=== PATIENT | female | born 1995 ===

== ENCOUNTER 2017-01-26 17:15 | Emergency (ER) | payer BC ==
[2017-01-26 17:32] VITALS: BP 106/71
--- NOTE | 2017-01-26 17:36 | UC ---
Abdominal Pain Male HPI - History of Current Complaint Stated Complaint: SORE THROAT Time Seen by Provider: 01/26/17 17:29 Hx Obtained From: Patient - Allergies/Home Medications Allergies/Adverse Reactions: Allergies Allergy/AdvReac Type Severity Reaction Status Date / Time Penicillins Allergy Rash Verified 01/26/17 17:24 Sulfa Antibiotics Allergy See Comment Verified 01/26/17 17:24 Home Medications: Home Medications Ibuprofen TAB* [Advil TAB*] 200 mg PO Q6H PRN 01/26/17 [History Confirmed ] Pseudoephedrine TAB* [Sudafed TAB*] 30 mg PO Q6H PRN 01/26/17 [History Confirmed 01/26/17] PMH/Surg Hx/FS Hx/Imm Hx Previously Healthy: No - Heroin addiction (quit "2 years ago"). Endocrine History Of: Denies: Diabetes, Thyroid Disease, Hyperthyroidism, Hypothyroidism, Dyslipidemia Cardiovascular History Of: Denies: Cardiac Disorders, Hypertension, Pacemaker/ICD, Myocardial Infarction , Congestive Heart Failure, Atrial Fibrillation, Deep Vein Thrombosis, Bleeding Disorders Respiratory History Of: Reports: Asthma - Exercise induced. Denies: COPD, Bronchitis, Pneumonia, Pulmonary Embolism GI/ History Of: Denies: Gastroesophageal Reflux, Ulcer, Gastrointestinal Bleed, Gall Bladder Disease, Kidney Stones, Diverticulitis, Renal Disease, Urosepsis
--- NOTE | 2017-01-26 18:00 | UC ---
Respiratory Complaint HPI - HPI Summary HPI Summary: This is an otherwise healthy 21 yo female who presents with complaints of one week of ST, FISH, ear pain, and dry cough. She has had associated chills and arthralgias. No SOB. No CP. She is unsure if she had a flu shot this year. She has been using Sudafed and ibuprofen at home the last couple of days, prior to that she was using DayQuil and NyQuil. - History of Current Complaint Chief Complaint: UCGeneralIllness Stated Complaint: SORE THROAT Time Seen by Provider: 01/26/17 17:29 Hx Last Menstrual Period: 01/22/17 - Allergies/Home Medications Allergies/Adverse Reactions: Allergies Allergy/AdvReac Type Severity Reaction Status Date / Time Penicillins Allergy Rash Verified 01/26/17 17:24 Sulfa Antibiotics Allergy See Comment Verified 01/26/17 17:24 Home Medications: Home Medications Pseudoephedrine TAB* [Sudafed TAB*] 30 mg PO Q6H PRN 01/26/17 [History Confirmed 01/26/17] PMH/Surg Hx/FS Hx/Imm Hx Previously Healthy: Yes - Surgical History Surgical History: None - Family History Known Family History: Positive: None - Social History Alcohol Use: None Substance Use Type: None Smoking Status (MU): Never Smoked Tobacco Review of Systems Constitutional: Chills Skin: Negative Eyes: Negative ENT: Sore Throat, Ear Ache, Nasal Discharge Respiratory: Cough Cardiovascular: Negative Gastrointestinal: Negative Genitourinary: Negative Motor: Negative Neurovascular: Negative Musculoskeletal: Negative Neurological: Negative Psychological: Negative All Other Systems Reviewed And Are Negative: Yes Physical Exam Triage Information Reviewed: Yes Appearance: Well-Appearing Vital Signs: Initial Vital Signs Temp 95.8 F 01/26/17 17:26 Pulse 71 01/26/17 17:26 Resp 16 01/26/17 17:26 BP 106/71 01/26/17 17:26 Pulse Ox 100 01/26/17 17:26 Vital Signs Reviewed: Yes ENT: Positive: Hearing grossly normal, Pharyngeal erythema - mildly injected, Nasal congestion, TM dull. Negative: TM bulging, TM red, Tonsillar swelling, Tonsillar exudate Neck: Positive: Supple, Enlarged Nodes @ - anterior cervical Respiratory: Positive: Lungs clear, Normal breath sounds, No respiratory distress. Negative: Crackles, Rhonchi, Stridor Cardiovascular: Positive: RRR, No Murmur Abdomen Description: Positive: Nontender, Soft Bowel Sounds: Positive: Present Skin Exam: Normal UC Diagnostic Evaluation - Laboratory O2 Sat by Pulse Oximetry: 100 Respiratory Course/Dx - Course Course Of Treatment: This is an otherwise healthy female who presents with a constellation of symptoms most consistent with an acute viral syndrome. Possibly influenza. She is outside the window for Tamiflu therapy and is otherwise uncomplicated, influenza testing not performed for these reasons. Recommend continued supportive care. - Differential Dx/Diagnosis Differential Diagnosis/HQI/PQRI: Bronchitis, Influenza, Laryngitis, Sinusitis Provider Diagnoses: Acute viral respiratory infection Discharge - Discharge Plan Condition: Stable Disposition: HOME Patient Education Materials: Upper Respiratory Infection (ED) Additional Instructions: Activity: As tolerated Instructions: 1. Continue Sudafed during the day, you may you benadryl at night as a decongestant that can also help with sleep 2. Increase your ibuprofen, use 600 mg up to three times daily to help with your throat pain and body aches
== END 2017-01-26 18:04 | disposition home or self-care (01) ==
LOC: UCCORT 17:15
DX: J06.9 Acute upper respiratory infection, unspecified (principal); Z88.2 Allergy status to sulfonamides; Z88.0 Allergy status to penicillin
CPT/HCPCS: 99202; G0463

== ENCOUNTER 2017-03-16 11:36 | Emergency (ER) | payer BC ==
[2017-03-16 12:29] VITALS: BP 108/69
--- NOTE | 2017-03-16 12:48 | UC ---
Complaint Female HPI - HPI Summary HPI Summary: Patient has had increased abdominal pressure, dysuria, vaginal irritation and some white discharge the past few days. - History Of Current Complaint Chief Complaint: [facility]CGU Stated Complaint: URINARY Time Seen by Provider: 03/16/17 12:18 Hx Obtained From: Patient Hx Last Menstrual Period: 03/14/17 ?: No Onset/Duration: Sudden Onset, Lasting Days Timing: Lasting Days Severity Initially: Moderate Severity Currently: Severe Character: Burning, Cramping Aggravating Factor(s): Monona, Urination Alleviating Factor(s): Nothing Associated Signs And Symptoms: Positive: Vaginal Discharge - Allergies/Home Medications Allergies/Adverse Reactions: Allergies Allergy/AdvReac Type Severity Reaction Status Date / Time Penicillins Allergy Rash Verified 03/16/17 12:07 Sulfa Antibiotics Allergy See Comment Verified 03/16/17 12:07 Home Medications: Home Medications Miconazole Nitrate Vaginal [Monistat 1 Combo Pack 1200-2 mg-%] 1 kit VA ONCE [History Confirmed 03/16/17] PMH/Surg Hx/FS Hx/Imm Hx Previously Healthy: Yes - Surgical History Surgical History: None - Family History Known Family History: Positive: Hypertension - Social History Alcohol Use: Occasionally Substance Use Type: None Smoking Status (MU): Never Smoked Tobacco - Immunization History Most Recent Influenza Vaccination: June 2016 Review of Systems Constitutional: Negative Skin: Negative Eyes: Negative ENT: Negative Respiratory: Negative Cardiovascular: Negative Gastrointestinal: Abdominal Pain Genitourinary: Dysuria, Frequency Motor: Negative Neurovascular: Negative Musculoskeletal: Negative Neurological: Negative Psychological: Negative All Other Systems Reviewed And Are Negative: Yes Physical Exam Triage Information Reviewed: Yes Appearance: Well-Nourished, Ill-Appearing, Pain Distress Vital Signs: Initial Vital Signs Temp 98.6 F 03/16/17 12:04 Pulse 90 03/16/17 12:04 Resp 16 03/16/17 12:04 BP 108/69 03/16/17 12:04 Pulse Ox 97 03/16/17 12:04 Vital Signs Reviewed: Yes Eye Exam: Normal Eyes: Positive: Conjunctiva Clear ENT Exam: Normal ENT: Positive: Hearing grossly normal, Pharynx normal, TMs normal Dental Exam: Normal Neck exam: Normal Neck: Positive: Supple, Nontender, No Lymphadenopathy Respiratory Exam: Normal Respiratory: Positive: Chest non-tender, Lungs clear, Normal breath sounds Cardiovascular Exam: Normal Cardiovascular: Positive: RRR, No Murmur, Brisk Capillary Refill Abdominal Exam: Other Abdomen Description: Positive: Nontender - supropubic tenderness, CVA Tenderness (R) - neg, CVA Tenderness (L) - neg, Other: - PELVIC: cheesy white discharge noted, vaginal wall inflammed and red painful with speculum insertion. neg cervical motion tenderness, currently menstrating Bowel Sounds: Positive: Present Musculoskeletal Exam: Normal Neurological Exam: Normal Psychological Exam: Normal Skin Exam: Normal Complaint Female Dx - Course Course Of Treatment: hx obtained, exam performed, meds reviewed, cultures obtained, treated for yeast and UTI - Differential Dx/Diagnosis Differential Diagnosis/HQI/PQRI: Cervicitis, Pelvic Inflammatory Disease, Sexually Transmitted Disease, Ureteral Stone, Urinary Tract Infection Provider Diagnoses: UTI. Vaginitis Discharge - Discharge Plan Condition: Stable Disposition: HOME Prescriptions: Cephalexin CAP* [Keflex CAP*] 500 mg PO BID #14 cap Fluconazole 150 MG (NF) [Diflucan 150 mg (NF)] 150 mg PO WEEKLY #2 tab Patient Education Materials: Vaginitis (ED), Urinary Tract Infection in Women ( ED) Additional Instructions: Take the medications as prescribed. We will run the test for the STD's yeast and gardnrella and if You need any further treatment we will contact you. Follow up with any worsening symptoms
== END 2017-03-16 13:06 | disposition home or self-care (01) ==
LOC: UCCORT 11:36
DX: N39.0 Urinary tract infection, site not specified (principal); N76.0 Acute vaginitis; Z88.0 Allergy status to penicillin; Z88.2 Allergy status to sulfonamides
CPT/HCPCS: 81003; 87077; 87086; 87186; 87480; 87491; 87510; 87591; 87661; 99212; G0463

== ENCOUNTER 2017-08-06 14:21 | Emergency (ER) | payer BC ==
[2017-08-06 15:48] VITALS: BP 119/77
--- NOTE | 2017-08-06 15:59 | UC ---
Complaint Female HPI - HPI Summary HPI Summary: C/O perineal itching and discomfort without vaginal discharge. - History Of Current Complaint Chief Complaint: [facility]CGU Stated Complaint: URINARY COMPLAINT Time Seen by Provider: 08/06/17 15:49 Hx Obtained From: Patient Hx Last Menstrual Period: 07/30/17, on control Onset/Duration: Sudden Onset - this morning, Lasting Hours - 10, Still Present Severity Initially: Mild Severity Currently: Mild - Allergies/Home Medications Allergies/Adverse Reactions: Allergies Allergy/AdvReac Type Severity Reaction Status Date / Time Penicillins Allergy Rash Verified 08/06/17 15:48 Sulfa Antibiotics Allergy See Comment Verified 08/06/17 15:48 Home Medications: Home Medications Norethindrone Acetate-Ethinyl [Lo Loestrin Fe 1 mg-10 Mcg / 10 Mcg] 1 tab PO DAILY 08/06/17 [History Confirmed 08/06/17] PMH/Surg Hx/FS Hx/Imm Hx Previously Healthy: Yes - Surgical History Surgical History: None - Family History Known Family History: Positive: Hypertension, Diabetes Negative: Cardiac Disease - Social History Occupation: Student Lives: Alone Alcohol Use: None Substance Use Type: None Smoking Status (MU): Never Smoked Tobacco Have You Smoked in the Last Year: No - Immunization History Most Recent Influenza Vaccination: June 2016 Review of Systems ENT: Sore Throat Genitourinary: Dysuria - Pain in the perineum with urination only Is Patient Immunocompromised?: No All Other Systems Reviewed And Are Negative: Yes Physical Exam Triage Information Reviewed: Yes Appearance: Well-Appearing, No Pain Distress, Well-Nourished Vital Signs: Initial Vital Signs Temp 98.6 F 08/06/17 15:45 Pulse 75 08/06/17 15:45 Resp 14 08/06/17 15:45 BP 119/77 08/06/17 15:45 Vital Signs Reviewed: Yes Neck exam: Normal Respiratory Exam: Normal Cardiovascular Exam: Normal Abdominal Exam: Normal Abdomen Description: Positive: Other: - Mild erythema and tenderness in the posterior vaginal introitus. Bowel Sounds: Positive: Present Neurological Exam: Normal Psychological Exam: Normal Skin Exam: Normal Complaint Female Dx - Differential Dx/Diagnosis Differential Diagnosis/HQI/PQRI: Cervicitis, Pelvic Inflammatory Disease, Urinary Tract Infection Provider Diagnoses: Vaginitis Discharge - Discharge Plan Condition: Stable Disposition: HOME Prescriptions: Fluconazole 150 MG (NF) [Diflucan 150 mg (NF)] 150 mg PO ONCE #1 tab Patient Education Materials: Vaginitis (ED), Fluconazole (By mouth) Additional Instructions: If you get wheezing, shortness of breath with exercise and allergies, montelukast is a good option for a medication. Images Perineum Female: 1 - Erythema with tenderness 2 - mild erythema with no tenderness
== END 2017-08-06 16:32 | disposition home or self-care (01) ==
LOC: UCCORT 14:21
DX: N76.0 Acute vaginitis (principal); R30.0 Dysuria; J02.9 Acute pharyngitis, unspecified; Z88.0 Allergy status to penicillin; Z88.2 Allergy status to sulfonamides
CPT/HCPCS: 81003; 87086; 87480; 87491; 87510; 87591; 99212; G0463